=== PATIENT | female | born 1950 ===

== ENCOUNTER 2017-04-28 14:03 | Emergency (ER) | payer MEDICAID ==
[2017-04-28 14:15] VITALS: BP 128/90; PULSE 90; RESP 20; TEMP 98.5; O2SAT 97
--- NOTE | 2017-04-28 16:18 | RAD ---
HISTORY: cough x 3 weeks COMPARISON: No prior study available for comparison TECHNIQUE: Chest PA and lateral FINDINGS: LUNGS: No active pulmonary disease. PLEURA: No significant pleural effusion identified. No pneumothorax apparent. CARDIOVASCULAR: Normal. OSSEOUS STRUCTURES: Mild multilevel degenerative spondylosis of the thoracic spine. VISUALIZED UPPER ABDOMEN: Normal. OTHER FINDINGS: None. IMPRESSION: No acute cardiopulmonary disease
[2017-04-28 16:30] LABS: BASO # 0.1 K/uL (0.0-0.2); BASO % 0.9 % (0.0-2.0); EOS # 0.2 K/uL (0.0-0.7); EOS % 1.3 % (0.0-4.0); HEMATOCRIT 41.9 % (34.0-47.0); LYMPH # 3.7 K/uL (1.0-4.3); LYMPH % 30.9 % (20.0-40.0); MEAN CELL VOLUME 88.6 fl (81.0-99.0); MEAN CORPUSCULAR HEMOGLOBIN 28.7 pg (27.0-31.0); MEAN CORPUSCULAR HGB CONC 32.4 g/dL (33.0-37.0); MEAN PLATELET VOLUME 9.5 fl (7.2-11.7); MONO # 0.9 K/uL (0.0-0.8); MONO % 7.4 % (0.0-10.0); NEUT # 7.2 K/uL (1.8-7.0); NEUT % 59.5 % (50.0-75.0); NRBC % 0.1 % (0.0-0.0); WHITE BLOOD COUNT 12.1 K/uL (4.8-10.8)
[2017-04-28 16:41] LABS: ALB/GLOB RATIO 1.1 (1.0-2.1); ALKALINE PHOSPHATASE 109 U/L (38-126); ALT/SGPT 36 U/L (9-52); AST/SGOT 29 U/L (14-36); BILIRUBIN,TOTAL 0.4 mg/dl (0.2-1.3); BLOOD UREA NITROGEN 11 mg/dl (7-17); CALCIUM 10.5 mg/dL (8.4-10.2); CARBON DIOXIDE 29 mmol/L (22-30); CHLORIDE 100 mmol/L (98-107); GFR AFRICAN-AMERICAN > 60; GLUCOSE,RANDOM 151 mg/dL (65-105); POTASSIUM 4.1 MMOL/L (3.6-5.0); SODIUM 143 mmol/l (132-148); TOTAL PROTEIN 9.4 G/DL (6.3-8.2)
--- NOTE | 2017-04-28 17:11 | ED PDOC ---
HPI: CCC, URI, Sore Throat Time Seen by Provider: 04/28/17 14:49 Chief Complaint (Nursing): Cough, Cold, Congestion Chief Complaint (Provider): Cough History Per: Patient History/Exam Limitations: no limitations Have you had recent travel within the past 21 days to any of the following countries: [place], [place], [place] or [place]?: No Onset/Duration Of Symptoms: Days Current Symptoms Are (Timing): Still Present Ear Symptoms: Bilateral: None Additional Complaint(s): Pt reports cough x 2 weeks. Was seen by PMD and given Z-pack on 04/18/17. Pt states she is still coughing. Pt denies pain. Pt reports no fever/chills. States he has a virus. Past Medical History Reviewed: Historical Data, Nursing Documentation, Vital Signs Vital Signs: Last Vital Signs Temp 98.5 F 04/28/17 14:10 Pulse 90 04/28/17 14:10 Resp 20 04/28/17 14:10 BP 128/90 04/28/17 14:10 Pulse Ox 97 04/28/17 14:10 - Medical History PMH: Arthritis, HTN - Surgical History Surgical History: No Surg Hx - Family History Family History: States: Unknown Family Hx - Living Arrangements Living Arrangements: With Family - Social History Current smoker - smoking cessation education provided: No Alcohol: None Drugs: Denies - Home Medications Home Medications: Ambulatory Orders Medication Instructions Recorded Azithromycin [Zithromax] 500 mg PO DAILY 04/28/17 Benzonatate [Benzonatate] 100 mg PO TID 04/28/17 Loratadine [Claritin] 10 mg PO DAILY 04/28/17 Valsartan/Hydrochlorothiazide 1 tab PO DAILY 04/28/17 [Valsartan-Hctz 160-12.5 mg Tab] metFORMIN [glucOPHAGE] 500 mg PO BID 04/28/17 - Allergies Allergies/Adverse Reactions: Allergies Allergy/AdvReac Type Severity Reaction Status Date / Time No Known Allergies Allergy Verified 04/28/17 14:10 Review of Systems ROS Statement: Except As Marked, All Systems Reviewed And Found Negative Constitutional: Negative for: Fever, Chills Cardiovascular: Negative for: Chest Pain, Palpitations Respiratory: Positive for: Cough. Negative for: Shortness of Breath Physical Exam - Reviewed Nursing Documentation Reviewed: Yes Vital Signs Reviewed: Yes - Physical Exam Appears: Positive for: Well, Non-toxic, No Acute Distress Head Exam: Positive for: ATRAUMATIC, NORMAL INSPECTION, NORMOCEPHALIC Skin: Positive for: Normal Color, Warm, DRY Eye Exam: Positive for: Normal appearance ENT: Positive for: Normal ENT Inspection Neck: Positive for: Normal, Painless ROM Cardiovascular/Chest: Positive for: Regular Rate, Rhythm Respiratory: Positive for: CNT, Normal Breath Sounds Gastrointestinal/Abdominal: Positive for: Normal Exam, Bowel Sounds, Soft Back: Positive for: Normal Inspection Extremity: Positive for: Normal ROM Neurologic/Psych: Positive for: Alert, Oriented - Laboratory Results Result Diagrams: 04/28/17 16:01 04/28/17 16:01 - ECG O2 Sat by Pulse Oximetry: 97 Medical Decision Making Medical Decision Making: CXR - Normal Disposition - Clinical Impression Clinical Impression: Viral illness - Disposition Disposition: Routine/Home Disposition Time: 16:51 Condition: GOOD Instructions: Acute Cough (ED) Print Language: GREENLAND[place]
== END 2017-04-28 17:12 | disposition home or self-care (01) ==
LOC: H.ER 14:03
DX: B34.9 Viral infection, unspecified (principal)